=== PATIENT | female | born 1990 | race Caucasian/White ===

== ENCOUNTER 2024-02-25 15:49 | Outpatient (CLI) | payer OTHER, SELFPAY | END 2024-02-25 15:50 | disposition home or self-care (01) | PROVIDERS: PCP Physician Assistant Medical; Visit Provider Physician Assistant Medical | DX: R42 Dizziness and giddiness (principal); F41.9 Anxiety disorder, unspecified | CPT/HCPCS: 80053; 84443 ==

== ENCOUNTER 2024-03-24 07:33 | Outpatient (CLI) | payer OTHER, SELFPAY ==
--- NOTE | 2024-03-24 07:45 | CRLHL7_ITS ---
For Patients: As a result of the Cures Act, medical imaging exams and procedure reports are released immediately into your electronic medical record. You may view this report before your referring provider. If you have questions, please contact your health care provider. DIGITAL DIAGNOSTIC LEFT MAMMOGRAM USING TOMOSYNTHESIS AND COMPUTER-AIDED DETECTION LEFT BREAST ULTRASOUND CLINICAL HISTORY: LEFT breast lump. COMPARISON: 09/28/2021, 10/05/2021. TECHNIQUE: Digital LEFT mammogram in two projections with computer-aided detection. Tomosynthesis was used in this interpretation. Real-time ultrasound imaging of LEFT breast with imaging documentation. Scanning was performed by both the technologist and the radiologist. BREAST COMPOSITION: There are scattered areas of fibroglandular density. FINDINGS: 3D CC/MLO LEFT breast mammogram images submitted. No suspicious mass or architectural distortion. No suspicious calcifications. No adenopathy. Post biopsy changes. Targeted LEFT breast ultrasound performed 11 o`clock 5 cm from the nipple. In this location, there is a band of dense fibroglandular tissue including a normal fat lobule within the dense tissue. No distal acoustic shadowing. No fibrocystic change. No suspicious findings. IMPRESSION: No evidence of malignancy. RECOMMENDATIONS: Routine screening mammography. A lay language report of this examination will be provided to the patient. BI-RADS Category 2: Benign Dictated by Elier Reis MD @ 03/24/2024 8:44:39 AM jj/Dictated by: Elier Reis MD @ 03/24/2024 8:44:00 AM (Electronically Signed)
--- NOTE | 2024-03-24 08:15 | CRLHL7_ITS ---
For Patients: As a result of the Cures Act, medical imaging exams and procedure reports are released immediately into your electronic medical record. You may view this report before your referring provider. If you have questions, please contact your health care provider. PLEASE SEE DIGITAL DIAGNOSTIC LEFT MAMMOGRAM PERFORMED SAME DAY CRL:[email or web address] silva/Dictated by: Elier Reis MD @ 03/24/2024 8:44:00 AM (Electronically Signed)
== END 2024-03-24 07:34 | disposition home or self-care (01) ==
LOC: MAMMO 07:34
PROVIDERS: PCP Physician Assistant Medical; Visit Provider Physician Assistant Medical
DX: N63.21 Unspecified lump in the left breast, upper outer quadrant (principal)
CPT/HCPCS: 76642; 77065; G0279